=== PATIENT | male | born 1940 | race Caucasian/White ===

== ENCOUNTER 2024-10-13 20:23 | Observation (INO) | payer MEDICARE, SELFPAY ==
[2024-10-13 17:18] VITALS: BP 157/76
[2024-10-13 19:27] VITALS: BMI 28.7
[2024-10-13 19:31] LABS: % Immature Granulocytes 0.2 % (0-0.5); % Lymphocytes 38.1 % (20.5-51.1); % Monocytes 13.1 % (1.7-9.3); % Neutrophils 43.6 % (42.2-75.2); Absolute Basophils 0.1 10^3/uL (0-0.2); Absolute Eosinophils 0.2 10^3/uL (0-0.7); Absolute Monocytes 0.7 10^3/uL (0.1-0.6); Absolute Neutrophils 2.3 10^3/uL (1.4-6.5); Hematocrit 39.9 % (39.0-52.0); Hemoglobin 13.6 g/dL (13.0-18.0); Mean Corp Hgb Conc. 34.1 g/dL (33.0-37.0); Mean Corpuscular Hgb 31.1 pg (27.0-31.0); Mean Corpuscular Volume 91.3 fL (80.0-94.0); Mean Platelet Volume 10.8 fL (7.4-10.4); Nucleated Red Blood Cells % 0 % (-); Platelet Count 214 10^3/uL (130-400); Red Blood Cell Count 4.37 10^6/uL (4.70-6.10); Red Cell Dist. Width 12.6 % (11.5-14.5); White Blood Cell Count 5.3 10^3/uL (4.8-10.8)
--- NOTE | 2024-10-13 19:32 | ED.GENMED ---
History of Present Illness
General
Chief Complaint: Skin Problem
Source: patient and physician
Exam Limitations: none
Time Seen by Provider: 10/13/24 18:47
History of Present Illness
History of Present Illness:
This is an 84yo male who presents with worsening redness of the L hand. the pt states that he was bitten by his cat while playing with the cat on sunday. in the past when this has happened he washed it an put on topical abx and did that this
time. however sunday he noted redness and was started on abx. he has taken 5 doses of augmentin and today noted increased redness. no fevers. he is a diabetic. does admit to swelling as he could not get his wedding ring off/
Past History
Past History
ED Past Medical History: HTN, Hypercholesterolemia and NIDDM
ED Past Surgical History: Appendectomy
Social History
Tobacco: Non-smoker
Personal:
Family History
Family History: Negative CAD
Phy Exam
Physical Exam
Physical Exam:
CONSTITUTIONAL Vital signs reviewed, Patient alert and oriented to person, place and time. Well-appearing
HEAD atraumatic, normocephalic.
EYES eyelids normal to inspection, Extraocular muscles intact, Conjunctiva normal, Sclera normal.
NECK normal range of motion, Trachea midline, no jugular venous distention.
RESP no respiratory distress
BACK No obvious deformities
UPPER EXTREMITY Gross Range of motion normal, gross motor strength normal. area of eccymosis on dorsal L hand with redness noted to the area surrounding extending to proximal dorsal phalanx region. nl cap refill. ? mild redness on volar forearm but
not convincing.
LOWER EXTREMITY Gross range of motion normal, Gross motor strength normal
NEURO Speech normal, No focal motor deficits include, [place] coma scale 15, Memory normal, Cranial Nerves intact to screening exam.
SKIN Skin warm, dry, and normal in color.
PSYCHIATRIC Patient oriented to person place and time, Normal affect.
Course
Orders/Labs/Results
Orders:
Orders
10/13/24 19:21
Complete Blood Count/With Diff Urgent
Comprehensive Metabolic Panel Urgent
10/13/24 19:28
Ampicillin/Sulbactam 3 G [Unasyn] 3 gm 0.9% Sodium Chloride 100 ml [Nss] 100 ml IV NOW
Abnormal Lab Results
10/13/24
19:21
RBC 4.37 L 10^6/uL
(4.70-6.10)
MCH 31.1 H pg
(27.0-31.0)
MPV 10.8 H fL
(7.4-10.4)
Absolute Monos (auto) 0.7 H 10^3/uL
(0.1-0.6)
Monocytes % 13.1 H %
(1.7-9.3)
10/13/24 19:21
Vital Signs
Initial and Last Documented VS:
Initial Vital Signs
Temp Pulse Resp BP Pulse Ox
98.3 F 72 18 157/76 98
10/13/24 17:18 10/13/24 17:18 10/13/24 17:18 10/13/24 17:18 10/13/24 17:18
Last Documented Vital Signs
Temp Pulse Resp BP Pulse Ox
98.3 F 72 18 157/76 98
10/13/24 17:18 10/13/24 17:18 10/13/24 17:18 10/13/24 17:18 10/13/24 17:18
MDM/Problems Addressed
MDM/Problems Addressed:
Cellulitis, cat bite, uncontrolled hypertension
*Pulse Oximetry
Patient hypoxic: no
*Critical Care Note
Total Time (30-74mins, 75-104mins- exclusive of procedures): Not Applicable
Data Reviewed
Source: patient and physician (Physician send no prior was arrival saying that he has been Augmentin and it is getting worse)
Patient Management
Discussion with other providers: Hospitalist
Escalation/DeEscalation of care consider admission/obs:
Patient systemically appears well. Do not suspect bacteremia but does have continued redness despite oral antibiotics and he is a diabetic. Likely could benefit from a few doses of IV antibiotics. White count okay.
ED Attending Note
-
Portions of this chart may have been created with voice recognition software.� Occasional wrong word or��sound alike� substitutions may have occurred due to the inherent limitations of voice recognition software.
Discharge Plan
Departure
Patient Disposition: Admit
Date of Disposition: 10/13/24
Time of Disposition: 19:40
Admit to: Med/Surg
Presentation/result/management discussed w/ accepting MD/DO: Hospitalist
Discharge Problem:
Cellulitis, Cat bite, Outpatient antibiotic failure
Prescriptions:
No Action
aspirin 81 MG tablet,delayed release (DR/EC)
81 mg PO DAILY
naproxen 375 MG tablet
375 mg PO BID Qty: 20 0RF
Rx Instructions:
Take with food.
hydrocodone-acetaminophen 5 MG/500 MG tablet
1 tab PO Q4HPRN PRN (Reason: PAIN) Qty: 25 0RF
enalapril maleate 10 MG tablet
20 mg PO DAILY
glyburide 5 MG tablet
10 mg PO BID
metformin 1,000 MG tablet
1,000 mg PO BID
lovastatin 20 MG tablet
20 mg PO DAILY
pioglitazone 30 MG tablet
30 mg PO DAILY
Interventions
Interventions:
*Risk Screen - Suicide Last Done: 10/13/24 19:05
*General Assessment Last Done: 10/13/24 19:05
*Neglect/Abuse Screening Last Done: 10/13/24 19:05
ED- Fall Risk Assessment Last Done: 10/13/24 19:05
*ED COVID-19 Vaccine History Last Done: 10/13/24 19:05
ED-Skin Assessment Last Done: 10/13/24 19:05
Discharge Date and Time
Print Language: CITIZEN OF [place]
[2024-10-13 19:34] VITALS: BP 178/68
[2024-10-13] MEDS: UNASYN IV ×2 (19:53→23:33)
--- NOTE | 2024-10-13 19:59 | HPS.HSE ---
Family Physician
-
Family Physician:
Chief Complaint
-
cat bite
History of Present Illness
84-year-old male past medical history of pulmonary embolism, type 2 diabetes, hypertension, hyperlipidemia presenting with worsening redness of the left hand. He was bitten by his cat while playing with the cat on Sunday 5 days ago. 2 days ago
he noticed redness and swelling and started antibiotic. He has taken 5 doses of Augmentin and notices increasing redness. No fever. No significant pain.
He was also having some sore throat congestion a few days ago but feels this is improved with the antibiotic. Denies nausea vomiting or diarrhea.
Denies smoking. Drinks alcohol very rarely.
Medical History
Past Medical History
Past Medical History: Reports Other (pulmonary embolism, type 2 diabetes, hypertension, hyperlipidemia )
Past Surgical History: Reports Other (Appendectomy)
Social History
Tobacco: Non-smoker
Alcohol: None
Drug: None
Family History
Family History: Not pertinent
Allergies / Home Medications
Allergies reflects when Allergies were last updated in [facility].
Home Medications with original date entered in [facility]
Allergy/Medication List:
Allergies
Allergy/AdvReac Type Severity Reaction Status Date / Time
No Known Allergies Allergy Verified 01/06/17 09:09
Home Medications
enalapril maleate 10 mg tablet 10 mg PO DAILY 04/06/11
lovastatin 20 mg tablet 20 mg PO HS 04/06/11
metformin 1,000 mg tablet 1,000 mg PO BID 04/06/11
pioglitazone 30 mg tablet 30 mg PO DAILY 04/06/11
amoxicillin 875 mg-potassium clavulanate 125 mg tablet 1 tab PO BID 10/13/24
Review of Systems
-
History Source: Patient
A 12 point ROS was completed and negative except as noted: Yes
Physical Exam
Vital Signs
Vital Signs
Temp Pulse Resp BP Pulse Ox
98.3 F 72 18 157/76 98
10/13/24 17:18 10/13/24 17:18 10/13/24 17:18 10/13/24 17:18 10/13/24 17:18
Physical Exam
General: Well Developed, Well Nourished and No Apparent Distress
HEENT: NormoCephalic, Moist mucous membranes and Atraumatic
Respiratory: Clear
Cardiac: S1/S2 and Regular Rhythm; No Murmur or Rub
GI: Soft, Non Tender, Non Distended and Normal Bowel Sounds; No Organomegaly
Rectal: Deferred by Provider
Musculoskeletal: No Clubbing, No Cyanosis and No Edema
Skin: Other (left hand redness and swelling ); No Rash
Neuro: Nonfocal/grossly intact
Laboratory Results
-
10/13/24 19:21
Data Reviewed
-
Lab Data: Labs Reviewed by me
Old Records: Reviewed
Impression/Plan
-
IMPRESSION:
PLAN:
# Cat bite cellulitis of left hand
-X-ray pending
-Unasyn
History of pulmonary embolism
Type 2 diabetes
-Continue metformin
-Continue pioglitazone
Essential hypertension
-Continue enalapril
Hyperlipidemia
-Continue statin
DNR/DNI
DVT prophylaxis�heparin
Regular diet
[2024-10-13 20:00] VITALS: BP 172/94
[2024-10-13 20:04] LABS: ALT (SGPT) 30 U/L (0-50); AST (SGOT) 39 U/L (17-59); Albumin 4.8 g/dl (3.5-5.0); Alkaline Phosphatase 51 U/L (38-126); Blood Urea Nitrogen 16 mg/dl (9-20); Calcium 9.3 mg/dl (8.4-10.2); Carbon Dioxide 24 mmol/L (22-30); Chloride 98 mmol/L (98-107); Estimated Creatinine Clearance 84 ml/min; Glucose 123 mg/dl (70-99); Potassium 4.8 mmol/L (3.5-5.1); Sodium 136 mmol/L (135-145); Total Bilirubin 1.2 mg/dl (0.2-1.3); Total Protein 7.4 g/dl (6.3-8.2); eGFR > 60.00
[2024-10-13 21:00] VITALS: BP 145/74
[2024-10-13 23:00] VITALS: BP 156/79
[2024-10-13] MEDS: HEPARIN SC (23:32)
[2024-10-14] MEDS: UNASYN IV ×3 (01:16→19:24)
[2024-10-14 07:55] VITALS: BP 145/72
[2024-10-14 08:08] LABS: % Eosinophils 7.8 % (0-6); % Immature Granulocytes 0.2 % (0-0.5); % Lymphocytes 34.4 % (20.5-51.1); % Monocytes 13.9 % (1.7-9.3); % Neutrophils 42.7 % (42.2-75.2); Absolute Basophils 0.1 10^3/uL (0-0.2); Absolute Eosinophils 0.4 10^3/uL (0-0.7); Absolute Lymphocytes 1.7 10^3/uL (1.2-3.4); Absolute Monocytes 0.7 10^3/uL (0.1-0.6); Absolute Neutrophils 2.1 10^3/uL (1.4-6.5); Hematocrit 39.1 % (39.0-52.0); Hemoglobin 13.1 g/dL (13.0-18.0); Mean Corp Hgb Conc. 33.5 g/dL (33.0-37.0); Mean Corpuscular Hgb 30.9 pg (27.0-31.0); Mean Corpuscular Volume 92.2 fL (80.0-94.0); Mean Platelet Volume 11.5 fL (7.4-10.4); Nucleated Red Blood Cells % 0 % (-); Platelet Count 215 10^3/uL (130-400); Red Blood Cell Count 4.24 10^6/uL (4.70-6.10); Red Cell Dist. Width 12.8 % (11.5-14.5); White Blood Cell Count 4.9 10^3/uL (4.8-10.8)
[2024-10-14] MEDS: VASOTEC 10 MG PO (08:27)
[2024-10-14] MEDS: GLUCOPHAGE 1000 MG PO ×2 (08:28→19:24)
[2024-10-14] MEDS: ACTOS 30 MG PO (08:28)
[2024-10-14 08:32] LABS: Glucose - Point of Care 119 mg/dl (70-99)
[2024-10-14 08:37] LABS: ALT (SGPT) 24 U/L (0-50); AST (SGOT) 28 U/L (17-59); Alkaline Phosphatase 55 U/L (38-126); Blood Urea Nitrogen 12 mg/dl (9-20); Carbon Dioxide 27 mmol/L (22-30); Chloride 101 mmol/L (98-107); Estimated Creatinine Clearance 84 ml/min; Glucose 119 mg/dl (70-99); Potassium 4.4 mmol/L (3.5-5.1); Sodium 137 mmol/L (135-145); Total Bilirubin 0.9 mg/dl (0.2-1.3); Total Protein 6.3 g/dl (6.3-8.2); eGFR > 60.00
[2024-10-14] MEDS: HEPARIN 5000 UNITS SC ×2 (08:37→19:24)
[2024-10-14 12:50] LABS: Glucose - Point of Care 126 mg/dl (70-99)
--- NOTE | 2024-10-14 15:29 | CM ---
Patient seen at bedside. 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 Patient stated they live in a 2 story home. Patient PCP is Dr. Jimenez and he uses the Pharmacy in [facility]. Patient is OBS and signed [facility]/OBS form placed on
chart. Patient plan is to have discharge tonight after antibiotic. Patient has ride home and declined other supports. CM will continue to follow for discharge planning needs.
Plan; home with no needs.
[2024-10-14 15:55] VITALS: BP 130/66
[2024-10-14 16:32] LABS: Glucose - Point of Care 131 mg/dl (70-99)
[2024-10-14] MEDS: LIPITOR 10 MG PO (18:02)
--- NOTE | 2024-10-14 18:24 | W.PN.HOSP.TC ---
Addendum entered and electronically signed by Flor Fritz MD 10/14/24 19:19:
I saw and evaluated the patient independently. I reviewed the resident�s note and agree with findings and plan as documented by Dr. Valiente.
GENERAL: well developed, well nourished, male in no apparent distress
HEENT: NC/AT--no O2 requirements
HEART: regular rate and rhythm, +S1, +S2
LUNGS : clear to auscultation bilaterally
ABDOM: soft, nontender, nondistended, + bowel sounds
EXT: no cyanosis, clubbing, or edema--left hand with redness and mild swelling (improved per pt)--no tenderness, able to make fist--not overly warm
NEUROLOGIC: grossly intact
cat bite/isidro--pt had 5 doses (2 1/2 days) of Augmentin without improvement but pt did not seek immediate medical attention--agree with IV unasyn--pt already better--will give another dose of IV unasyn at 8PM tonight and can be d/c--resume and
finish outpt dosing of Augmentin
ok for d/c
Original Note:
Today's Communication/Plan
-
Pt to get nightly dose of Unasyn at 8pm. Okay to be discharged tonight after this. To continue PO augmentin at home and follow up with PCP
Assessment / Plan
Assessment / Plan
Anticipated Discharge: Today
Subjective/Interval History
-
Date of Service: October 14, 2024
No overnight events
Objective Data
-
Labs:
Laboratory Results
10/14/24
07:15
WBC 4.9
Hgb 13.1
Hct 39.1
Plt Count 215
Sodium 137
Potassium 4.4
Chloride 101
Carbon Dioxide 27
BUN 12
Creatinine 0.7
Glucose 119 H
Calcium 9.0
Total Bilirubin 0.9
AST 28
ALT 24
Alkaline Phosphatase 55
Vital Signs:
Vital Signs
Temp Pulse Resp BP Pulse Ox
97.7 F 76 16 130/66 98
10/14/24 15:55 10/14/24 15:55 10/14/24 15:55 10/14/24 15:55 10/14/24 15:55
I&O
10/13/24 10/14/24 10/15/24
06:59 06:59 06:59
Intake Total 120 / 120
Balance 120 / 120
Review of Systems
-
History Source: Patient
Constitutional: Denies Fever
Respiratory: Denies Trouble Breathing
Cardiac: Denies Chest Pain or Palpitations
Abdomen/GI: Denies Abdominal Pain
Skin: Reports Other (Redness of dorsum of left hand, minimal swelling, no pain)
Neuro: Reports Other (no weakness, numbness or parasthesia of left hand)
Physical Exam
-
General: Well Nourished, No Apparent Distress and Comfortable
HEENT: Normocephalic, Atraumatic and Moist Mucous Membranes
Respiratory: Clear to Auscultation and Non Labored Respirations; Negative Wheezes, Rales, Rhonchi or Crackles
Cardiac: Regular Rhythm and S1/S2; Negative Murmur or Calf Tenderness
GI: Soft, Nontender, Nondistended and Normal Bowel Sounds
Musculoskeletal: No Clubbing, No Cyanosis and No Edema
Skin: Other (Some erythema of dorsum of left hand. No notable swelling. No induration or warmth. small scabbed abrasion noted on lateral dorsum of l hand)
Neuro: Awake, Alert, Oriented, No Motor Deficits and No Sensory Deficits
Psych: Calm
[2024-10-14 19:32] LABS: Glucose - Point of Care 144 mg/dl (70-99)
[2024-10-14 19:59] VITALS: BP 155/69
--- NOTE | 2024-10-14 20:15 | PTCARENOTE ---
Last dose of IV Unasyn administered. Went over discharge paperwork with pt. IV removed and pt walked to elevators.
--- NOTE | 2024-10-15 17:20 | W.DCSUMMARY ---
Addendum entered and electronically signed by Flor Fritz MD 10/15/24 18:05:
Read, reviewed, and agree. See same day progress note for additional details. Time spent coordinating care, DC planning, review of DC plan of care with resident, transition of care, review of records in EMR, med rec, consults, notes, d/w
consultants, nursing, family, and CM = 25 minutes
Original Note:
Discharge Summary
Discharge Data
Date of Admission: 10/13/24
Date of Discharge: 10/14/24
-
Pending Results: No
Hospital Course
Discharging Physician : Caprice Valiente MD; Flor Fritz MD
Disposition : Home
Primary care physician : Eloy Michel MD.
Principal Discharge diagnosis : Left hand cellulitis, cat bite
Chronic Discharge diagnosis : History of pulmonary embolism, type 2 diabetes, essential hypertension, hyperlipidemia
Hospital Course : 84-year-old male with above past medical history presented to ED on 08/12 with worsening redness of the left hand. He was bitten by his cat while playing with the cat on 5 days prior to presentation. He was started on
Augmentin by his PCP 3 days after the event. At presentation he had taken 5 doses of Augmentin but noticed increased redness and swelling, without fever or significant pain. Upon arrival, vitals were stable with stable CBC and chemistries. Unasyn
was started in the ED and continued throughout the day. By 10/14, there was significant improvement of cellulitis with reduced erythema swelling and sensitivity. He otherwise remained stable.
All home chronic medications were continued throughout stay. He was discharged on 10/14 with instructions to complete Augmentin doses as prescribed by PCP prior to admission. He is to follow-up shortly with PCP, Dr. Michel.
Important imaging findings :
Hand x-ray space 10/13: No definite radiographic evidence of osteomyelitis or acute fracture. Mild soft tissue swelling along the hand. Vascular calcifications. Multifocal mild degenerative changes with flattening of the third metatarsal head which
may be degenerative or posttraumatic in nature.
Discharge Plan
-
Patient Disposition: Home (Routine Discharge)
Discharge Diagnosis/Procedures: Cellulitis of left hand, cat bite
Condition: Good
Diet: Low Cholesterol, Low Sodium and Diabetic, Carb Controlled
Activity: No restrictions
Driving Restrictions: As prior to admission
Bathing Restrictions: None
Instructions: Cellulitis (skin infection) in adults - Discharge instructions
Referrals:
Eloy Michel MD [Family Provider] -
Additional Discharge Medication Instructions: Finish home doses of Augmentin, one tablet twice daily. Please follow up with PCP Dr. Michel in 2-3 days.
Prescriptions:
Continued
enalapril maleate 10 MG tablet
10 mg PO DAILY
metformin 1,000 MG tablet
1,000 mg PO BID
lovastatin 20 MG tablet
20 mg PO HS
pioglitazone 30 MG tablet
30 mg PO DAILY
amoxicillin-pot clavulanate 875-125 mg Tablet
1 tab PO BID Qty: 0 0RF
Patient Comments:
10/13/24: to take for 10 days starting 10/11/24
Rx Instructions:
Finish all remaining tablets of Augmentin, take one tab twice daily starting 10/15/2024 morning
Discharge Orders:
Discharge Patient (As Directed); Ordered 10/14/24
Ordered By: Caprice Valiente
Discharge Date and Time
Discharge Date/Time: 10/14/24 20:20
Print Language: [place]ENTR[place]
== END 2024-10-14 20:20 | disposition home or self-care (01) ==
LOC: 4 EAST ACU 20:23
PROVIDERS: Student in an Organized Health Care Education/Training Program; ADMITTING PHYSICIAN Hospitalist; ATTENDING PHYSICIAN Internal Medicine; EMERGENCY PHYSICIAN Emergency Medicine; FAMILY PHYSICIAN Family Medicine
DX: L03.114 Cellulitis of left upper limb (principal); W55.01XA Bitten by cat, initial encounter; Z86.711 Personal history of pulmonary embolism; E11.9 Type 2 diabetes mellitus without complications; I10 Essential (primary) hypertension; E78.00 Pure hypercholesterolemia, unspecified; Z79.84 Long term (current) use of oral hypoglycemic drugs; Z66 Do not resuscitate
CPT/HCPCS: 73130; 80053; 82962; 85025; 96365; 99285; G0378